=== PATIENT | female | born 1950 | race Caucasian/White ===

== ENCOUNTER 2017-10-19 08:20 | Outpatient (CLI) | payer MEDICARE | END 2017-10-19 08:21 | disposition home or self-care (01) | LOC: SLEEPLAB 08:20 | PROVIDERS: ATTEND Family Medicine | DX: G47.33 Obstructive sleep apnea (adult) (pediatric) (principal); R53.83 Other fatigue; I10 Essential (primary) hypertension; R06.83 Snoring | CPT/HCPCS: 95810 ==

== ENCOUNTER 2017-12-06 19:30 | Outpatient (CLI) | payer MEDICARE | END 2017-12-06 19:31 | disposition home or self-care (01) | LOC: SLEEPLAB 19:30 | PROVIDERS: ATTEND Family Medicine | DX: G47.33 Obstructive sleep apnea (adult) (pediatric) (principal); G47.52 REM sleep behavior disorder; I10 Essential (primary) hypertension | CPT/HCPCS: 95811 ==

== ENCOUNTER 2018-08-14 05:53 | Day surgery (SDC) | payer MEDICARE ==
[2018-08-13 11:00] VITALS: BMI 45.2
--- NOTE | 2018-08-14 10:12 | OP ---
DATE OF PROCEDURE: 08/14/2018 TITLE OF PROCEDURE: Esophagogastroduodenoscopy with Dolan dilation and biopsy. PREOPERATIVE DIAGNOSIS: Dysphagia for the last several years. POSTOPERATIVE DIAGNOSES: 1. Examination to second portion of duodenum. 2. A 4 cm hiatal hernia, estimated from 36 cm to 40 cm from the incisors. 3. Early Schatzki ring just proximal to the hiatal hernia at 36 cm, biopsied. 4. Status post dilation of the upper half of the esophagus with a 54-Turkish Dolan. 5. Normal stomach. 6. Normal duodenum. PROCEDURE IN DETAIL: Written informed consent was obtained. The patient was brought to the endoscop y suite. Total intravenous anesthesia was provided by Ms. Marly Mullen CRNA. The patient was placed in the left lateral decubitus position. A bite block was inserted into the mouth. A Pentax v ideo diagnostic gastroscope was introduced into the oral cavity and the esophagus was carefully intub ated. The gastroscope was advanced under direct visualization to the second portion of the duodenum. Endoscopic findings revealed a grossly normal esophageal motility. In the distal esophagus, a 4 cm hiatal hernia was identified from 36 cm to 40 cm from the incisors. A mild nonobstructing Schatzki ring was noted at 36 cm from the incisors. After the dilation of the upper esophagus, this area was biopsied for histology. The stomach was entered and carefully examined. This included a retroflexed view of the cardia and fundus. The stomach was unremarkable. The duodenum from the bulb to the sec ond portion demonstrated mild nonspecific patchy erythema with no ulceration. The endoscope was then removed and a 54-Turkish Dolan dilator was passed into the upper half of the esophagus with mild re sistance. The scope was reintroduced to evaluate the dilation site and obtain the esophageal biopsie s. A small amount of mucosal disruption and oozing was noted, but no active bleeding or overt tear. After the biopsies were obtained in the lower esophagus, the upper GI tract was decompressed and the endoscope was completely removed from the patient. She was repositioned for the colonoscopy. RECOMMENDATIONS: 1. Await biopsy results. 2. Ask the patient to call me in 1 week for biopsy results. 3. Low fat diet, stressing the importance of eating smaller and more frequent meals to avoid or to p revent overfilling of the stomach. 4. Gradual weight loss of 20-30 pounds will be recommended. 5. Initiate Nexium 40 mg daily. 6. Follow up in the GI office in 5-6 weeks.
--- NOTE | 2018-08-14 10:14 | OP ---
DATE OF PROCEDURE: 08/14/2018 TITLE OF PROCEDURE: Colonoscopy with biopsy. PREOPERATIVE DIAGNOSIS: Average risk colon cancer screening. POSTOPERATIVE DIAGNOSES: 1. Exam to cecum; good bowel preparation. 2. Mild sigmoid diverticulosis. 3. Mild congestion and erythema of the sigmoid colon from 25 cm distally, biopsied. 4. No polyps or vascular ectasias identified. 5. Small internal hemorrhoids. 6. Otherwise normal colonoscopy. PROCEDURE IN DETAIL: Written informed consent was obtained. Upon completion of the EGD, the patient was repositioned for the colonoscopy. Total intravenous anesthesia was provided by Ms. Marly daigle CRNA. A digital rectal exam was performed, which showed a small perianal tag. A Pentax video colonoscope was inserted through the anal canal and advanced under direct visualization to the cecum . Position in the cecum was verified by clear identification of the appendiceal orifice and the ileo cecal valve. The quality of the bowel preparation was good. Each colon segment was examined careful ly as the colonoscope was slowly withdrawn from the cecum. Vascular pattern and haustral folds appea red normal. Occasional diverticular orifices were noted in the sigmoid colon, none of which were ble eding or appeared infected. Starting at 25 cm distally in the sigmoid colon, the mucosa appeared mil dly congested and erythematous in a patchy distribution. Two superficial small ulcers were also iden tified, each measuring 2 mm in diameter. Biopsies were obtained for histology. No polyps were seen. A retroflexed view in the rectum demonstrated small internal hemorrhoids that appeared somewhat swo llen, but were not actively bleeding. The colon was decompressed as the colonoscope was completely w ithdrawn from the patient. She was transferred to the day stay surgery area for post-procedure monit oring. There were no immediate complications. RECOMMENDATIONS: 1. Await biopsy results. 2. Ask the patient to call me in 1 week for biopsy results. 3. Follow up in GI office in 5-6 weeks. 4. For colon cancer screening, I recommend repeating colonoscopy in 10 years or 08/2028.
[2018-08-14] MEDS ORDERED: Lidocaine 1% PF 5 ML VIAL ONE (13:30)
[2018-08-14] MEDS ORDERED: PROPOFOL 200 MG/20 ML VIAL ONE (13:30)
== END 2018-08-14 08:55 | disposition home or self-care (01) ==
LOC: SDC 05:53
PROVIDERS: ATTEND Internal Medicine Gastroenterology
PROC: 0DBN8ZX Excision of Sigmoid Colon, Via Natural or Artificial Opening Endoscopic, Diagnostic (ICD-10-PCS; principal; 2018-08-14)
PROC: 0DB38ZX Excision of Lower Esophagus, Via Natural or Artificial Opening Endoscopic, Diagnostic (ICD-10-PCS; 2018-08-14)
PROC: 0D718ZZ Dilation of Upper Esophagus, Via Natural or Artificial Opening Endoscopic (ICD-10-PCS; 2018-08-14)
DX: Z12.11 Encounter for screening for malignant neoplasm of colon (principal); K52.9 Noninfective gastroenteritis and colitis, unspecified; K57.30 Diverticulosis of large intestine without perforation or abscess without bleeding; K64.8 Other hemorrhoids; K22.2 Esophageal obstruction; K44.9 Diaphragmatic hernia without obstruction or gangrene; I10 Essential (primary) hypertension; E78.00 Pure hypercholesterolemia, unspecified; Z79.899 Other long term (current) drug therapy
CPT/HCPCS: 88305; 88312; 88313; J2001; J2704

== ENCOUNTER 2019-03-27 06:10 | Inpatient (IN) | payer MEDICARE ==
[2019-03-27] MEDS ORDERED: Atropine Sulfate 1 mg/10 ml Syringe ONE (06:30)
[2019-03-27] MEDS ORDERED: Fentanyl 100 MCG/2 ML VIAL ONE ×2 (06:38→07:31)
[2019-03-27 06:53] LABS: #Lymphocytes 1.1 thou/uL (1.20-3.40); #Monocytes 0.6 thou/uL (0.11-0.59); %Basophils 0.3 % (0.0-1.0); %Eosinophils 0.1 % (0.0-10.0); %Lymphocytes 9.5 % (21.0-51.0); %Monocytes 4.7 % (0.0-10.0); %Neutrophils 85.3 % (42.0-75.0); Hemoglobin 13.3 g/dL (12.0-16.0); Mean Corpuscular Hemoglobin 29.8 pg (27.0-31.0); Mean Corpuscular Volume 87.7 fL (78.0-98.0); Mean Platelet Volume 8.1 fL (7.4-10.4); Platelet Count 236 thou/uL (130-400); RBC Distribution Width 12.3 % (11.5-14.5); Red Blood Cell (RBC) Count 4.46 mill/uL (4.20-5.40); White Blood Cell (WBC) Count 11.7 thou/uL (4.8-10.8)
[2019-03-27 07:15] LABS: ALT (SGPT) 15 U/L (8-55); AST (SGOT) 17 U/L (5-34); Albumin 4.2 g/dL (3.4-4.8); Alkaline Phosphatase 90 U/L (40-150); Anion Gap 14 mmol/L (10-20); BUN (Urea Nitrogen) 14 mg/dL (9.8-20.1); Bilirubin, Total 0.6 mg/dL (0.2-1.2); CK (CPK) 86 U/L (29-168); Calc. Creatinine Clearance 0 mL/min (70-130); Carbon Dioxide 24 mmol/L (23-31); Chloride 106 mmol/L (98-107); Estimated GFR-MDRD 51; Globulin 2.7 g/dL (2.4-3.5); Glucose 147 mg/dL (80-115); Lipase 10 U/L (8-78); Protein, Total 6.9 g/dL (6.0-8.3); Sodium 140 mmol/L (136-145)
[2019-03-27] MEDS ORDERED: Nitroglycerin 2% Ointment 1 INCH/1 GM Packet ONE (08:35)
--- NOTE | 2019-03-27 08:39 | RAD ---
CHEST 1 VIEW: INDICATION: Right-sided chest pain. COMPARISON: None. FINDINGS: Lungs are clear. Heart size is accentuated by exam technique. No pleural effusion or pneumothorax i s evident. No acute osseous abnormality is noted. There is a pacer pad overlying the right chest wa ll. IMPRESSION: No definite acute cardiopulmonary abnormality. POS: BH
[2019-03-27] MEDS ORDERED: Lidocaine 2% Viscous Solution 10 ML, Aluminum & Magnesium Hydroxide 30 ML SSW SCH (09:15)
[2019-03-27] MEDS ORDERED: Morphine 4 MG/ML VIAL SLOW IVP SCH (09:15)
[2019-03-27] MEDS ORDERED: Morphine 4 MG/ML VIAL ONE (09:20)
[2019-03-27] MEDS ORDERED: Mag-Al 1200 mg/1200 mg/30 ML UDCUP ONE (09:21)
[2019-03-27] MEDS ORDERED: hydrALAZINE 20 MG/ML VIAL ONE (09:21)
[2019-03-27] MEDS ORDERED: Lidocaine Viscous Sol 2% 15 ml UD Cup ONE (09:21)
[2019-03-27] MEDS ORDERED: Ondansetron PF 4 MG/2 ML Vial ONE (09:25)
[2019-03-27 10:32] VITALS: BMI 44.8
[2019-03-27 11:10] LABS: Troponin I 0.011 ng/mL (< 0.028)
[2019-03-27] MEDS ORDERED: Bisacodyl 5 MG TAB PO PRN (11:22)
[2019-03-27] MEDS ORDERED: Acetaminophen 325 MG TAB PO PRN (11:22)
[2019-03-27] MEDS ORDERED: Acetaminophen 650 MG Suppository PR PRN (11:22)
--- NOTE | 2019-03-27 11:46 | HP ---
PRIMARY CARE PROVIDER: Tejas Arnold MD CHIEF COMPLAINT: Chest pain. HISTORY OF PRESENT ILLNESS: Ms. Coyle is a pleasant 68-year-old lady, who was seen at [facility] on March 27, 2019. She reports that around 10:00 p.m. yesterday, she started having chest pain. It was right-sided and retrosternal, sharp, 10/10, nonradiating, accompanied by shortness of breath, nausea, and lightheadedness. She reports vomiting once. She denies any cough or fever. She denies any abdominal pain. REVIEW OF SYSTEMS: All other systems were reviewed and found to be negative. PAST MEDICAL HISTORY: Hypertension and dyslipidemia. 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 SOCIAL HISTORY: No history of tobacco use, alcohol use, or recreational drug use. ALLERGIES: NO KNOWN DRUG ALLERGIES. CURRENT MEDICATIONS: 1. Atorvastatin 10 mg daily. 2. Hydrochlorothiazide 25 mg daily. 3. Losartan 50 mg daily. 4. Vitamin D3 5000 units daily. PHYSICAL EXAMINATION: GENERAL: On examination, Ms. Coyle is awake and alert, not in acute distress. VITAL SIGNS: Blood pressure is 194/75, pulse 75, respiratory rate 22, and oxygen saturation 99% on room air. She is afebrile. When she presented to the emergency room, she had a blood pressure of 222/93 and pulse of 42. She is morbidly obese, with a BMI of 44.8. EYES: No scleral icterus, no conjunctival pallor. ENT: Moist mucosal membranes. No oropharyngeal erythema or exudates. NECK: Supple, nontender, trachea is midline. RESPIRATORY: Accessory muscles of breathing are not active. Chest wall movements are symmetric bilaterally. Lungs are clear to auscultation without wheeze, rhonchi, or crepitations. CARDIOVASCULAR: S1 and S2 are heard, regular. Peripheral pulses palpable. ABDOMEN: Soft, mild right quadrant tenderness, bowel sounds heard. No guarding or rigidity. NEUROLOGIC: Cranial nerves 2 through 12 intact, deep tendon reflexes 2+. MUSCULOSKELETAL: Power is 5/5 in all 4 extremities. SKIN: No rashes or subcutaneous nodules. LYMPHATIC: No cervical lymphadenopathy. PSYCHIATRIC: Normal mood, normal affect, the patient is oriented to person, place, and time. LABORATORY DATA: Ms. Coyle's labs and investigations were reviewed. I reviewed her electrocardiogram, which shows marked sinus bradycardia with a ventricular rate of 45 beats per minute, no ST changes to suggest an acute coronary syndrome. I also reviewed her chest x-ray, which does not show any pulmonary infiltrates. She has leukocytosis with 11,700 white cells, of which 85.3% are neutrophils. Hemoglobin and platelet count are normal. Comprehensive metabolic profile is unremarkable. Lipase is normal. Troponin I is negative x2. ASSESSMENT AND PLAN: Ms. Coyle is a pleasant 68-year-old lady, who was seen at [facility] on March 27, 2019. Her problem list includes: 1. Chest pain: Ms. Coyle is presenting with chest pain, etiology unclear at this time. She will be admitted to the hospital for telemetry monitoring. Troponin' s have been negative so far. Cardiology Service also being consulted for opinion and help with management. 2. Bradycardia: She was bradycardic on presentation. This resolved after she got a dose of atropine. We will continue to monitor on telemetry. 3. Hypertension: She initially presented with hypertensive urgency, this has improved since then. We will continue to monitor vital signs and titrate antihypertensives as needed. 4. Dyslipidemia: We will continue statin. Many thanks for allowing me to participate in your patient's care. Please feel free to contact me with any questions or concerns. LEVEL OF RISK: High. LEVEL OF COMPLEXITY: High. Job ID: [id number] MTDD
[2019-03-27 13:52] LABS: Troponin I 0.018 ng/mL (< 0.028)
[2019-03-27] MEDS: Morphine 2 MG/ML SYRINGE SLOW IVP PRN ×3 (14:52→23:57)
--- NOTE | 2019-03-27 18:30 | CON ---
DATE OF CONSULTATION: 03/27/2019 REASON FOR CONSULTATION: Chest pain. HISTORY OF PRESENT ILLNESS: Ms. Coyle is a very pleasant 68-year-old white female, who comes to the hospital for right-sided chest pain and hypertension. In the ER, she was found to have a blood pressure in 200/100 and her heart rate was about 43 to 48, so she was given a dose of atropine and given morphine for her pain and nitroglycerin patch for the blood pressure, and her blood pressure improved. Her symptoms got much better after the morphine. She was admitted then for rule out. She has had 3 negative troponins, but her right-sided chest pain continues. It is worse when she moves her right arm when she lays on the right side. I asked if she had found a spot where the pain was much worse, she started feeling around her chest and she found the exact spot around her right breast where it was exquisitely tender to palpation. She also states that it pains when she takes a deep breath. The only relief she has gotten is when she received the IV morphine. She has never had problems with her heart in the past. She does have high blood pressure. She has been taking her medications. She tells me that yesterday before this started, she cleaned her house. She actually has a vacuum janitorial cleaner that is able to clean with soap the carpet and she has four large dogs that have been outside in the mud as there has been raining so much, and they brought in the mud making her home really dirty, so she decided to clean it, and she spent about 3 to 4 hours cleaning with the right arm moving it back and forth. She would only hold the cord with her left arm. She states that she is much more comfortable with the right arm that she barely use her left arm for the vacuum janitorial cleaner. This is not something she does on a regular basis. PAST MEDICAL HISTORY: 1. Hypertension. 2. Hyperlipidemia. PAST SURGICAL HISTORY: 1. Cancer removal from the nose. 2. Right ankle surgery. 3. Tubal ligation. 4. Bladder suspension. SOCIAL HISTORY: No alcohol, tobacco, or drugs. smokes but not in the house or with her. ALLERGIES: NO KNOWN DRUG ALLERGIES. OUTPATIENT MEDICATIONS: 1. Atorvastatin 10 mg a day. 2. Hydrochlorothiazide 25 mg a day. 3. Losartan 50 mg a day. 4. Vitamin D3. REVIEW OF SYSTEMS: A 12-point review of systems was done and was all negative unless stated in history of present illness. PHYSICAL EXAMINATION: VITAL SIGNS: Temperature 99.1, highest has been 99.8, pulse 79, respiratory rate 16, saturation 92% on 2 L nasal cannula, blood pressure 136/63. It has been as high as 174/72 and on admission in the ER, it was 222/93 with pain was 8/10 and a heart rate of 42. GENERAL: Awake, alert, and oriented x3, in mild distress, mostly when she moves. HEENT: Normocephalic and atraumatic. NECK: Supple. LUNGS: Clear. CARDIOVASCULAR: S1 and S2. No S3 or S4. No murmurs. ABDOMEN: Soft. Positive bowel sounds. EXTREMITIES: Trace edema. SKIN: Warm and dry. She has very reproducible pain when palpating the right lower ribcage around the 7th rib. LABORATORY DATA: Laboratory work was reviewed. CBC is unremarkable except for white count 11, hemoglobin of 13, hematocrit 39, platelet count 236. Chemistries were normal except for glucose of 147. Troponin was negative x3. DIAGNOSTIC DATA: Chest x-ray showed no acute cardiopulmonary issues. Looking close for the area of pain. There are no obvious fractures on the right-sided ribcage. ASSESSMENT AND PLAN: 1. Right-sided chest pain, most likely musculoskeletal. 2. Bradycardia, asymptomatic. She has not had recurrence since yesterday. 3. Hypertensive emergency, likely related to her chest pain. Her blood pressure is much better controlled now with pain control. We will restart her home medications for now. PLAN: 1. Restart home medications. 2. Continue blood pressure control. 3. Continue pain control. 4. Musculoskeletal chest pain most likely. 5. We will get an echocardiogram. 6. Further recommendations per results of echocardiogram. From the cardiac perspective if the echocardiogram is normal, she may be discharged home at any point. Job ID: [id number]
[2019-03-28] MEDS: Morphine 2 MG/ML SYRINGE SLOW IVP PRN ×5 (04:02→21:18)
[2019-03-28 06:32] LABS: Anion Gap 12 mmol/L (10-20); BUN (Urea Nitrogen) 14 mg/dL (9.8-20.1); Calc. Creatinine Clearance 98 mL/min (70-130); Calcium 9.3 mg/dL (7.8-10.44); Carbon Dioxide 26 mmol/L (23-31); Chloride 101 mmol/L (98-107); Estimated GFR-MDRD 51; Glucose 113 mg/dL (80-115); Potassium 3.8 mmol/L (3.5-5.1); Sodium 135 mmol/L (136-145)
[2019-03-28 06:53] LABS: Band 28 % (5-11); Hemoglobin 12.6 g/dL (12.0-16.0); Lymphocytes 2 % (21-51); MDiff Complete? YES; Mean Corpuscular HGB CONC 33.6 g/dL (32.0-36.0); Mean Corpuscular Hemoglobin 29.9 pg (27.0-31.0); Mean Platelet Volume 7.8 fL (7.4-10.4); Monocytes 3 % (0-10); Neutrophil 67 % (42-75); Platelet Count 189 thou/uL (130-400); Platelet Morphology Comment Appears Adequate; RBC Distribution Width 12.6 % (11.5-14.5); RBC Morphology Normal; Red Blood Cell (RBC) Count 4.21 mill/uL (4.20-5.40); White Blood Cell (WBC) Count 27.6 thou/uL (4.8-10.8)
[2019-03-28] MEDS: Hydrochlorothiazide 25 MG TAB PO SCH (08:54)
[2019-03-28] MEDS: Losartan 25 MG TAB PO SCH (08:56)
--- NOTE | 2019-03-28 11:37 | EKG ---
Test Reason : Blood Pressure : / mmHG Vent. Rate : 045 BPM Atrial Rate : 045 BPM P-R Int : 146 ms QRS Dur : 088 ms QT Int : 510 ms P-R-T Axes : 060 005 025 degrees QTc Int : 441 ms Marked sinus bradycardia Abnormal ECG Confirmed by DR. Mindi WALSH ([id number]) on 03/28/2019 11:36:45 AM Referred By: Confirmed By:DR. Mindi WALSH
[2019-03-28 15:22] LABS: Mean Corpuscular HGB CONC 32.4 g/dL (32.0-36.0); Mean Corpuscular Hemoglobin 29.2 pg (27.0-31.0); Mean Corpuscular Volume 90.3 fL (78.0-98.0); Platelet Count 181 thou/uL (130-400); RBC Distribution Width 12.6 % (11.5-14.5); Red Blood Cell (RBC) Count 4.11 mill/uL (4.20-5.40); White Blood Cell (WBC) Count 24.8 thou/uL (4.8-10.8)
[2019-03-28 15:45] LABS: Band 30 % (5-11); Lymphocytes 4 % (21-51); MDiff Complete? YES; Metamyelocyte 1 % (0-0); Monocytes 5 % (0-10); Neutrophil 60 % (42-75); Platelet Morphology Comment Appears Adequate; Polychromasia SLIGHT = 2-3 cells (100X) (0-2/hpf)
--- NOTE | 2019-03-28 16:27 | PDOC.PN ---
- Subjective Encounter Start Date: 03/28/19 Encounter Start Time: 16:25 Pt seen for followup re: sepsis. Says pain is better. No nausea or vomiting. No urinary symptoms. - Objective Resuscitation Status - Order Detail: 03/27/19 11:22 Resuscitation Status Routine Resuscitation Status: FULL: Full Resuscitation Discussed with: patient and spouse MAR Reviewed: Yes Vital Signs & Weight: Vital Signs (12 hours) Temp Pulse Resp BP Pulse Ox 03/28/19 16:00 100.1 F H 73 16 125/58 L 94 L 03/28/19 12:08 98.5 F 75 16 140/65 94 L 03/28/19 08:56 98.7 F 80 18 117/56 L 95 03/28/19 07:36 93 L Weight Weight 269 lb 3.197 oz I&O: 03/27/19 03/28/19 03/29/19 06:59 06:59 06:59 Intake Total 250 Balance 250 Result Diagrams: 03/28/19 15:13 03/28/19 05:48 EKG Reviewed by me: Yes (Tele: NSR) Phys Exam - Physical Examination Morbid obesity HEENT: moist MMs, sclera anicteric, oral pharynx no lesions, 2+ tonsils Neck: no nodes, no JVD, supple, full ROM Respiratory: clear to auscultation bilateral Cardiovascular: RRR, no rub S1, S2 Gastrointestinal: soft, no distention, positive bowel sounds Mild RUQ tenderness Neurological: moves all 4 limbs Psychiatric: normal affect, A&O x 3 Dx/Plan (1) Sepsis Code(s): A41.9 - SEPSIS, UNSPECIFIED ORGANISM Status: Acute Comment: Pt is febrile, has bandemia. Has RUQ/right lower chest tenderness. Initiate empiric antibiotics and workup including urinalysis, blood cultures, abdo US. (2) HTN (hypertension) Code(s): I10 - ESSENTIAL (PRIMARY) HYPERTENSION Status: Chronic Comment: continue hydrochlorothiazide and losartan (3) Dyslipidemia Code(s): E78.5 - HYPERLIPIDEMIA, UNSPECIFIED Status: Chronic Comment: continue atorvastatin (4) Hypertensive urgency Code(s): I16.0 - HYPERTENSIVE URGENCY Status: Resolved - Plan * . Review of Systems - Review of Systems Constitutional: fever. negative: chills, sweats, weakness, malaise Respiratory: negative: Cough, Shortness of Breath, SOB with Excertion, Pleuritic Pain, Wheezing Cardiovascular: chest pain. negative: orthopnea, paroxysmal nocturnal dyspnea, edema, light headedness Gastrointestinal: Abdominal Pain. negative: Nausea, Vomiting, Diarrhea, Constipation, Melena, Hematochezia, Other Genitourinary: negative: Dysuria, Frequency, Incontinence, Hematuria, Retention Musculoskeletal: negative: Neck Pain, Shoulder Pain, Arm Pain, Back Pain, Hand Pain, Leg Pain, Foot Pain - Medications/Allergies Allergies/Adverse Reactions: Allergies Allergy/AdvReac Type Severity Reaction Status Date / Time No Known Allergies Allergy Verified 03/27/19 10:36 Medications: Current Medications Acetaminophen (Tylenol) 650 mg PO Q4H PRN PRN Reason: Headache/Fever/Mild Pain (1-3) Acetaminophen (Tylenol) 650 mg IN Q4H PRN PRN Reason: Headache/Fever/Mild Pain (1-3) Bisacodyl (Dulcolax) 10 mg PO DAILYPRN PRN PRN Reason: Constipation Hydrochlorothiazide (Hydrochlorothiazide) 12.5 mg PO DAILY [facility] Last Admin: 03/28/19 08:54 Dose: 12.5 mg Vancomycin HCl 1 gm/ Device 200 mls @ 200 mls/hr IVPB 0600,1800 [facility] Piperacillin Sod/Tazobactam (Sod 4.5 gm/ Sodium Chloride) 100 mls @ 200 mls/hr IVPB 0100,0900,1700 [facility] Vancomycin HCl 2 gm/ Sodium (Chloride) 500 mls @ 250 mls/hr IVPB 1800 [facility] Stop: 03/28/19 20:00 Losartan Potassium (Cozaar) 50 mg PO DAILY [facility] Last Admin: 03/28/19 08:56 Dose: 50 mg Miscellaneous Medication (Pharmacy To Dose) 1 each IVPB PRN PRN PRN Reason: Pharmacy to dose Morphine Sulfate (Morphine) 2 mg SLOW IVP Q4H PRN PRN Reason: Pain Last Admin: 03/28/19 12:50 Dose: 2 mg
--- NOTE | 2019-03-28 16:57 | PDOC.CTH ---
Cardiology Progress Note - Subjective Sore right rib. Feels like she cannot take a deep breath. - Objective Vital Signs Temp Pulse Resp BP Pulse Ox 03/28/19 16:00 100.1 F H 73 16 125/58 L 94 L 03/28/19 12:08 98.5 F 75 16 140/65 94 L 03/28/19 08:56 98.7 F 80 18 117/56 L 95 03/28/19 07:36 93 L Weight 269 lb 3.197 oz 03/27/19 03/28/19 03/29/19 06:59 06:59 06:59 Intake Total 250 Balance 250 - Physical Examination General/Neuro: alert & oriented x3, NAD Neck: no JVD present Lungs: CTA, unlabored respirations Heart: RRR Abdomen: NT/ND Extremities: + edema B (trace) - Telemetry Telemetry Rhythm: NSR - Labs Result Diagrams: 03/28/19 15:13 03/28/19 05:48 Troponin/CKMB Troponin I 0.018 ng/mL (< 0.028) 03/27/19 13:19 - Assessment/Plan 1. Chest pain, MSK. 2. Hypoxia 3. HTN, well controlled. 4. Bradycardia, resolved. PLAN: - Non cardiac chest pain, - Very sore right lower rib. - May explain her hypoxia as she is not able to take a full breath and with her weight this may be making her hypoxic. - I cannot explain her elevated white count with this unless she has developed atelectasy from this. Would repeat CXR and keep overnight. - No new recs from cardiac perspective. - Will sign out. Please call with any questions.
[2019-03-28 17:06] LABS: ALT (SGPT) 28 U/L (8-55); AST (SGOT) 27 U/L (5-34); Albumin 3.5 g/dL (3.4-4.8); Alkaline Phosphatase 89 U/L (40-150); Bilirubin, Direct 0.9 mg/dL (0.1-0.3); Bilirubin, Total 1.9 mg/dL (0.2-1.2); Protein, Total 6.4 g/dL (6.0-8.3)
[2019-03-28] MEDS: Piperacillin/Tazobactam 4.5 GM in Sodium Chloride 0.9% 100 ML IVPB SCH (17:11)
[2019-03-28 18:35] LABS: Bilirubin Negative (Negative); Blood, Urine Trace (Negative); Clarity CLEAR (Clear); Glucose, Urine (Dipstick) Negative (Negative); Leukocyte Small (Negative); Nitrite Negative (Negative); Protein, Urine (Dipstick) 30 mg/dL (Neg-Trace); Specific Gravity, Urine 1.023 (1.002-1.036); pH, Urine 5.5 (5.0-9.0)
[2019-03-28 18:37] LABS: Hyaline Casts/LPF 4-6 HYALINE CAST LPF (0-3 Hyaline); Pathc Cast-AUWi Flag 1.49 (0-2.49)
--- NOTE | 2019-03-28 18:40 | RAD ---
EXAM: Two views chest PROVIDED CLINICAL HISTORY: Follow-up evaluation. Right-sided chest pain one day ago. Evaluate for infection. COMPARISON: 03/27/2019 FINDINGS: Cardiac silhouette and pulmonary vasculature are within normal limits. There are linear densities se en in the left hilar region, left mid lung zone, and at the left lung base likely attributable to atelectasis. There is mild elevation of the right hemidiaphragm with mild volume loss at the right brandin ng base. There is questionable small hiatal hernia at the medial left lung base. No pleural effusion is seen. Vascular calcifications are seen in the thoracic aorta. Degenerative changes again noted in the spine. IMPRESSION: Scattered linear densities within the left perihilar region and at the left lung base probably attrib utable to atelectasis. However, if there are clinical concerns for pneumonitis, follow-up chest x-ray is recommended..
[2019-03-28 18:47] LABS: RBC/HPF 0-3 HPF (0-3)
[2019-03-28 18:48] LABS: Bacteria/HPF 1+ HPF (None Seen); Urine Culture Reflex No No
[2019-03-28 21:10] LABS: Lactic Acid 1.2 mmol/L (0.5-2.2)
[2019-03-29] MEDS: Piperacillin/Tazobactam 4.5 GM in Sodium Chloride 0.9% 100 ML IVPB SCH ×3 (00:31→16:30)
[2019-03-29] MEDS: Morphine 2 MG/ML SYRINGE SLOW IVP PRN ×2 (04:08→09:00)
[2019-03-29] MEDS ORDERED: Vancomycin HCl 1 GM in Premix Bag 1 BAG IVPB SCH (06:00)
--- NOTE | 2019-03-29 07:48 | ULT ---
ULTRASOUND ABDOMEN COMPLETE HISTORY: Right upper quadrant pain. TECHNIQUE: Parry-scale ultrasound evaluation of the liver, gallbladder, spleen, pancreas, common bile duct, kidne ys, abdominal aorta, and inferior vena cava (IVC). FINDINGS: There is mild increased echogenicity of the liver without a focal lesion evident. Cholelithiasis is present. There is thickening of the gallbladder wall at 7 mm, and Huertas's sign is reported as posit debbie by the drilling machine operator. Dilatation of the common duct at 9 mm noted. There is a small focus of incr eased echogenicity of the right kidney which may relate to a calcification. The spleen and the left kidney are unremarkable. The pancreas is obscured from view by bowel content limiting assessment. T here is also obscuration of the aorta for comment. The visualized IVC is grossly unremarkable. IMPRESSION: 1. Cholelithiasis and cholecystitis. Recommend surgical consultation. 2. Dilatation of the common duct. Correlate with biliary laboratory values. 3. Additional findings as detailed above. POS: BIANCA
[2019-03-29] MEDS: Hydrochlorothiazide 25 MG TAB PO SCH (09:08)
[2019-03-29] MEDS: Losartan 25 MG TAB PO SCH (09:08)
--- NOTE | 2019-03-29 11:04 | CON ---
DATE OF CONSULTATION: 03/29/2019 CHIEF COMPLAINT: Abdominal pain. HISTORY OF PRESENT ILLNESS: This is a 68-year-old female admitted last night to the Hospitalist Service. She had Cardiology see her as well, complaining of right-sided and retrosternal sharp 10/10 pain, does not radiate. Associated with the pain when she breaths, shortness of breath, nausea and vomiting, never had this pain before. No prior history of gallstones, jaundice, or pancreatitis. Cardiac workup is negative. Ultrasound shows thickened gallbladder wall and cholecystitis. She has elevation of her liver function tests. No family history of GI malignancy or anesthetic-related complication. PAST MEDICAL HISTORY: Hypertension, dyslipidemia. REVIEW OF SYSTEMS: Ten system review of systems is otherwise negative unless described above. PAST SURGICAL HISTORY: Negative for abdominal surgery. SOCIAL HISTORY: No smoking, alcohol, or other drugs. ALLERGIES: NO KNOWN DRUG ALLERGIES. MEDICATIONS: At home; 1. Atorvastatin. 2. Hydrochlorothiazide. 3. Losartan. 4. Vitamin D3. PHYSICAL EXAMINATION: VITAL SIGNS: Blood pressure is 133/62, pulse 79, respirations 20, and she is afebrile. GENERAL: Alert, no acute distress, although she splints when she takes a big breath due to her pain on the right side. HEENT: Sclerae are anicteric. Oropharynx clear. NECK: No lymphadenopathy. CHEST: Clear. HEART: Regular rate. ABDOMEN: Soft. Tender right upper quadrant with localized guarding without rebound. No abdominal hernia. EXTREMITIES: No ischemia or edema to extremities. LABORATORY DATA: White blood cell count is 24, hemoglobin 12, and platelet count is 181. Sodium is 135, potassium 3.8, creatinine is 1.07, and bilirubin 1.9. AST, ALT, alkaline phosphatase, and lipase all normal. IMAGING DATA: Ultrasound shows thickened gallbladder wall, dilation of the common bile duct, gallstones. ASSESSMENT: 1. Acute cholecystitis, though there are no liver tests. 2. Hypertension. 3. Dyslipidemia. PLAN: Laparoscopic cholecystectomy with intraoperative cholangiogram. Risks, benefits, and alternatives were discussed, she gives consent and we will do this today. Job ID: [id number]
[2019-03-29] MEDS ORDERED: Glycopyrrolate 0.2 MG/ML 5 ML SYRINGE ONE (12:04)
[2019-03-29] MEDS ORDERED: Ketorolac Tromethamine 30 MG/ML VIAL ONE ×2 (12:04→12:35)
[2019-03-29] MEDS ORDERED: Ondansetron PF 4 MG/2 ML Vial ONE (12:04)
[2019-03-29] MEDS ORDERED: Rocuronium Bromide 10 MG/ML (10ML VIAL) ONE (12:04)
[2019-03-29] MEDS ORDERED: PHENYLEPHRINE-NS 100 MCG/ML 10 ML SYRINGE ONE (12:04)
[2019-03-29] MEDS ORDERED: PROPOFOL 200 MG/20 ML VIAL ONE (12:04)
[2019-03-29] MEDS ORDERED: Succinylcholine Chloride 20 MG/ML 10 ml SYRINGE FS ONE (12:04)
[2019-03-29] MEDS ORDERED: Lidocaine 2% PF 5 ML VIAL ONE (12:04)
[2019-03-29] MEDS ORDERED: Dexamethasone 20 MG/5 ML VIAL ONE (12:04)
[2019-03-29] MEDS ORDERED: Bupivacaine/Epinephrine 0.25% 30 ML VIAL ONE (12:19)
[2019-03-29] MEDS ORDERED: Iothalamate Meglumine 60% 50 ML VIAL FS ONE (12:19)
[2019-03-29] MEDS ORDERED: Fentanyl 100 MCG/2 ML VIAL ONE ×2 (12:20)
[2019-03-29] MEDS ORDERED: Ondansetron HCl/PF 4 MG/2 ML Vial IVP PRN (13:26)
[2019-03-29] MEDS ORDERED: Promethazine HCl 25 MG/ML VIAL IM PRN ×2 (13:26→15:37)
[2019-03-29] MEDS ORDERED: Promethazine HCl 25 MG/ML VIAL SLOW IVP PRN (13:26)
--- NOTE | 2019-03-29 13:49 | RAD ---
EXAM: Operative cholangiogram INDICATIONS: Intraoperative imaging during cholecystectomy procedure. Operative cholangiogram. COMPARISON: None. FINDINGS: 2 images presented. Common duct is opacified and appears unremarkable. No filling defect id entified. IMPRESSION: Unremarkable cholangiogram
[2019-03-29] MEDS ORDERED: SUGAMMADEX SODIUM 200 MG/2 ML VIAL ONE (13:58)
[2019-03-29] MEDS ORDERED: Calcium Carbonate 500 MG ChewTAB PO PRN (15:37)
[2019-03-29] MEDS ORDERED: Mag-Al 1200 mg/1200 mg/30 ML UDCUP PO PRN (15:37)
[2019-03-29] MEDS ORDERED: hydrALAZINE 20 MG/ML VIAL SLOW IVP PRN (15:37)
[2019-03-29] MEDS ORDERED: Ondansetron PF 4 MG/2 ML Vial IVP PRN (15:37)
[2019-03-29] MEDS ORDERED: Dextrose 5% in Water 1,000 ML IV PRN (15:37)
[2019-03-29] MEDS ORDERED: traMADol HCl 50 MG TAB PO PRN ×2 (15:37)
[2019-03-29] MEDS ORDERED: Dextrose 50% Abboject 50 ML SYRINGE SLOW IVP PRN (15:37)
[2019-03-29] MEDS ORDERED: Morphine 4 MG/ML VIAL SLOW IVP PRN (15:37)
[2019-03-29] MEDS ORDERED: Morphine 2 MG/ML SYRINGE SLOW IVP PRN (15:37)
--- NOTE | 2019-03-29 15:46 | PDOC.PN ---
- Subjective Encounter Start Date: 03/29/19 Encounter Start Time: 07:00 Pt seen for followup re: acute cholecystitis. Reports RUQ pain. - Objective Resuscitation Status - Order Detail: 03/27/19 11:22 Resuscitation Status Routine Resuscitation Status: FULL: Full Resuscitation Discussed with: patient and spouse Vital Signs & Weight: Vital Signs (12 hours) Temp Pulse Resp BP Pulse Ox 03/29/19 15:25 98.3 F 74 22 H 113/67 100 03/29/19 11:44 101.3 F H 79 22 H 125/64 92 L 03/29/19 08:29 98.9 F 79 20 133/62 92 L Weight Weight 272 lb I&O: 03/28/19 03/29/19 03/30/19 06:59 06:59 06:59 Intake Total 250 700 Output Total 1500 Balance 250 -800 Result Diagrams: 03/28/19 15:13 03/28/19 05:48 Phys Exam - Physical Examination Morbid obesity HEENT: moist MMs icterus Neck: supple Respiratory: clear to auscultation bilateral Cardiovascular: RRR Gastrointestinal: soft Neurological: moves all 4 limbs Psychiatric: normal affect Dx/Plan (1) Acute cholecystitis Code(s): K81.0 - ACUTE CHOLECYSTITIS Status: Acute Comment: Pt on empiric antibiotics, awaiting cholecystectomy (2) Sepsis Code(s): A41.9 - SEPSIS, UNSPECIFIED ORGANISM Status: Acute Comment: secondary to acute cholecystitis, continue antibiotics, await cholecystectomy. (3) HTN (hypertension) Code(s): I10 - ESSENTIAL (PRIMARY) HYPERTENSION Status: Chronic Comment: controlled, continue hydrochlorothiazide and losartan (4) Dyslipidemia Code(s): E78.5 - HYPERLIPIDEMIA, UNSPECIFIED Status: Chronic Comment: on atorvastatin (5) Hypertensive urgency Code(s): I16.0 - HYPERTENSIVE URGENCY Status: Resolved - Plan * . Review of Systems - Review of Systems Cardiovascular: negative: chest pain, palpitations, orthopnea, paroxysmal nocturnal dyspnea, edema, light headedness Gastrointestinal: Nausea, Abdominal Pain. negative: Vomiting, Diarrhea, Constipation, Melena, Hematochezia - Medications/Allergies Allergies/Adverse Reactions: Allergies Allergy/AdvReac Type Severity Reaction Status Date / Time No Known Allergies Allergy Verified 03/27/19 10:36 Medications: Current Medications Hydrocodone Bitart/Acetaminophen ([place] 10/325) 1 tab PO Q6H PRN PRN Reason: Moderate Pain (4-6) Al Hydroxide/Mg Hydroxide (Maalox) 15 ml PO Q6H PRN PRN Reason: Dyspepsia Albuterol/Ipratropium (Duoneb) 3 ml NEB Q4H PRN PRN Reason: Wheezing Calcium Carbonate (Tums) 1,000 mg PO Q4H PRN PRN Reason: Dyspepsia Dextrose/Water (Dextrose 50%) 25 gm SLOW IVP PRN PRN PRN Reason: Hypoglycemia Famotidine (Pepcid) 20 mg PO Q12HR FELIX Famotidine (Pepcid) 20 mg SLOW IVP Q12HR [facility] Glucagon (Glucagon) 1 mg IM PRN PRN PRN Reason: Hypoglycemia Hydralazine HCl (Apresoline) 10 mg SLOW IVP Q4H PRN PRN Reason: SBP > 170 or DBP > 100 Hydrochlorothiazide (Hydrochlorothiazide) 12.5 mg PO DAILY [facility] Last Admin: 03/29/19 09:08 Dose: Not Given Piperacillin Sod/Tazobactam (Sod 4.5 gm/ Sodium Chloride) 100 mls @ 200 mls/hr IVPB 0100,0900,1700 [facility] Last Admin: 03/29/19 09:00 Dose: 100 mls Dextrose/Water (D5w) 1,000 mls @ 0 mls/hr IV .Q0M PRN PRN Reason: Hypoglycemia Sodium Chloride (Normal Saline 0.9%) 1,000 mls @ 100 mls/hr IV .Q10H [facility] Losartan Potassium (Cozaar) 50 mg PO DAILY [facility] Last Admin: 03/29/19 09:08 Dose: Not Given Morphine Sulfate (Morphine) 2 mg SLOW IVP Q2H PRN PRN Reason: Mild Pain (1-3) Morphine Sulfate (Morphine) 4 mg SLOW IVP Q2H PRN PRN Reason: Moderate Pain (4-6) Ondansetron HCl (Zofran) 4 mg IVP Q6H PRN PRN Reason: Nausea/Vomiting Promethazine HCl (Phenergan) 12.5 mg IM Q4H PRN PRN Reason: Nausea/Vomiting Tramadol HCl (Ultram) 50 mg PO Q6H PRN PRN Reason: Mild Pain (1-3) Tramadol HCl (Ultram) 100 mg PO Q6H PRN PRN Reason: Moderate Pain (4-6)
[2019-03-29] MEDS: Sodium Chloride 0.9% 1,000 ML IV SCH (16:30)
[2019-03-29] MEDS: HYDROcodone/Acetaminophen 10/325 mg Tablet PO PRN ×2 (16:31→21:45)
--- NOTE | 2019-03-29 19:51 | OP ---
DATE OF PROCEDURE: 03/29/2019 PREOPERATIVE DIAGNOSIS: Acute gangrenous cholecystitis. POSTOPERATIVE DIAGNOSIS: Acute gangrenous cholecystitis. PROCEDURE PERFORMED: Laparoscopic cholecystectomy with intraoperative cholangiogram, placement of temporary upper abdominal drain. ANESTHESIA: General. ESTIMATED BLOOD LOSS: Minimal. COMPLICATIONS: None. FINDINGS: Gangrenous cholecystitis, but cholangiogram normal. TECHNIQUE: The patient was taken to the operating room and laid supine on the operating room table. After general anesthetic was obtained, the abdomen was prepped and draped in a sterile fashion. A curved incision was made below the umbilicus. Cautery was dissected down to and scored the fascia. Abdominal cavity was entered bluntly using a Magaly clamp. Holding stitch of PDS . Latanya trocar was placed. High-flow pneumoperitoneum was obtained. Upper midline 5-mm port, two right upper quadrant 5-mm ports were placed under direct visualization. Gallbladder was gangrenous. It was decompressed with the needle decompression. It was able to be then grasped. Because of the patient's body habitus, the colon was up in front of the gallbladder had to be retracted down with additional 5e port and the snake liver retractor. The peritoneum was opened at the bottom of the gallbladder exposing the cystic duct. This area of the cystic duct just completely in 2 during blunt dissection leaving only a stump of the cystic duct down inferiorly. Cholangiocatheter was put in through here and a cholangiogram was performed, which showed a long cystic duct. No injury to the common bile duct. Good contrast flow into the duodenum, right and left hepatic duct system without obstruction. Three clips were placed to ligate this proximal stump. Cystic artery was taken using two clips proximally, one clip distally and cut using laparoscopic scissors. The gallbladder tract was removed was excised from the gallbladder fossa using cautery. Meticulous hemostasis obtained in the liver bed. The right upper quadrant was irrigated using sterile solution. A 19 round drain brought out through a right upper quadrant incision and left in the gallbladder bed sewn in place using 2-0 silk. All port sites were infiltrated using local anesthetic. All ports were removed under camera visualization. Pneumoperitoneum was let down. PDS was used to close the fascial defect. All incisions were closed using 4-0 Monocryl and Dermabond. The patient recovered in stable condition. All sponge counts, needle counts, lap counts were correct. Job ID: [id number]
[2019-03-29] MEDS: Famotidine/PF 20 mg/2ml Vial SLOW IVP SCH (21:23)
[2019-03-29] MEDS: Famotidine 20 MG TAB PO SCH (21:54)
[2019-03-30] MEDS ORDERED: Sodium Chloride 0.9% 1,000 ML IV SCH (01:30)
--- NOTE | 2019-03-30 01:47 | PDOC.EVN ---
Event Note - Event Note Event Note: RN called - BP low. STAT labs ordered. Receiving IVF bolus. Will monitor.
[2019-03-30 02:09] LABS: #Lymphocytes 0.6 thou/uL (1.20-3.40); #Monocytes 0.8 thou/uL (0.11-0.59); #Neutrophils 14.5 thou/uL (1.40-6.50); %Eosinophils 0.1 % (0.0-10.0); %Lymphocytes 3.9 % (21.0-51.0); %Monocytes 4.9 % (0.0-10.0); %Neutrophils 91.1 % (42.0-75.0); Hemoglobin 10.5 g/dL (12.0-16.0); Mean Corpuscular HGB CONC 32.2 g/dL (32.0-36.0); Mean Corpuscular Hemoglobin 29.3 pg (27.0-31.0); Mean Corpuscular Volume 91.1 fL (78.0-98.0); Mean Platelet Volume 8.5 fL (7.4-10.4); Platelet Count 147 thou/uL (130-400); RBC Distribution Width 12.5 % (11.5-14.5); Red Blood Cell (RBC) Count 3.57 mill/uL (4.20-5.40); White Blood Cell (WBC) Count 15.9 thou/uL (4.8-10.8)
[2019-03-30 02:30] LABS: Lactic Acid 1.4 mmol/L (0.5-2.2)
[2019-03-30 02:34] LABS: ALT (SGPT) 38 U/L (8-55); AST (SGOT) 34 U/L (5-34); Albumin 2.8 g/dL (3.4-4.8); Alkaline Phosphatase 84 U/L (40-150); Anion Gap 11 mmol/L (10-20); BUN (Urea Nitrogen) 26 mg/dL (9.8-20.1); Bilirubin, Total 0.8 mg/dL (0.2-1.2); Calc. Creatinine Clearance 74 mL/min (70-130); Calcium 8.8 mg/dL (7.8-10.44); Carbon Dioxide 25 mmol/L (23-31); Chloride 104 mmol/L (98-107); Estimated GFR-MDRD 36; Glucose 177 mg/dL (80-115); Magnesium 2.1 mg/dL (1.6-2.6); Potassium 4.3 mmol/L (3.5-5.1); Protein, Total 5.8 g/dL (6.0-8.3); Sodium 136 mmol/L (136-145)
[2019-03-30] MEDS: Piperacillin/Tazobactam 4.5 GM in Sodium Chloride 0.9% 100 ML IVPB SCH ×2 (02:58→08:44)
[2019-03-30] MEDS: Sodium Chloride 0.9% 1,000 ML IV SCH (02:59)
[2019-03-30] MEDS: Famotidine/PF 20 mg/2ml Vial SLOW IVP SCH (08:36)
[2019-03-30] MEDS: Famotidine 20 MG TAB PO SCH (08:44)
[2019-03-30] MEDS ORDERED: Losartan 25 MG TAB PO SCH (09:00)
[2019-03-30] MEDS ORDERED: Hydrochlorothiazide 25 MG TAB PO SCH (09:00)
[2019-03-30] MEDS: HYDROcodone/Acetaminophen 10/325 mg Tablet PO PRN (10:35)
--- NOTE | 2019-03-30 11:26 | PDOC.GSPN ---
Surgery Progress Note: Subj - Subjective Patient reports: no new complaints Surgery Progress Note: Obj - Vital signs Vital signs: Vital Signs - Most Recent Temp Pulse Resp BP Pulse Ox 97.5 F L 51 L 14 117/71 95 03/30/19 08:00 03/30/19 08:00 03/30/19 08:00 03/30/19 08:00 03/30/19 08:00 - Physical Exam General: no distress Respiratory: clear to auscultation Abdomen: soft, appropriately tender Wound: healing well Surgery Progress Note: Results - Labs Result Diagrams: 03/30/19 01:57 03/30/19 01:57 Lab results: Laboratory Results - last 24 hr 03/28/19 03/30/19 03/30/19 15:13 01:57 01:57 WBC RBC Hgb Hct MCV MCH MCHC RDW Plt Count MPV Neutrophils % Lymphocytes % Monocytes % Eosinophils % Basophils % Neutrophils # Lymphocytes # Monocytes # Eosinophils # Basophils # Smear Path Review Sodium 136 Potassium 4.3 Chloride 104 Carbon Dioxide 25 Anion Gap 11 BUN 26 H Creatinine 1.44 H Estimated GFR (MDRD) 36 Glucose 177 H Lactic Acid Calcium 8.8 Magnesium 2.1 Total Bilirubin 0.8 AST 34 ALT 38 Alkaline Phosphatase 84 Serum Total Protein 5.8 L Albumin 2.8 L Globulin 3.0 Albumin/Globulin Ratio 0.9 L Cortisol 7.30 03/30/19 03/30/19 01:57 01:57 WBC 15.9 H RBC 3.57 L Hgb 10.5 L Hct 32.5 L MCV 91.1 MCH 29.3 MCHC 32.2 RDW 12.5 Plt Count 147 MPV 8.5 Neutrophils % 91.1 H Lymphocytes % 3.9 L Monocytes % 4.9 Eosinophils % 0.1 Basophils % 0.0 Neutrophils # 14.5 H Lymphocytes # 0.6 L Monocytes # 0.8 H Eosinophils # 0.0 Basophils # 0.0 Smear Path Review Sodium Potassium Chloride Carbon Dioxide Anion Gap BUN Creatinine Estimated GFR (MDRD) Glucose Lactic Acid 1.4 Calcium Magnesium Total Bilirubin AST ALT Alkaline Phosphatase Serum Total Protein Albumin Globulin Albumin/Globulin Ratio Cortisol Surgery Progress Note: A/P - Problem (1) Acute cholecystitis Current Visit: Yes Code(s): K81.0 - ACUTE CHOLECYSTITIS Status: Acute - Plan Plan: DC later today -I will remove drain in office Saturday
[2019-03-30 11:39] VITALS: BP 118/59; TEMP 97.1
--- NOTE | 2019-03-31 00:24 | DIS ---
DATE OF ADMISSION: 03/27/2019 DATE OF DISCHARGE: 03/30/2019 PRIMARY CARE PROVIDER: Dr. Tejas Arnold. DISCHARGE DIAGNOSES: 1. Acute cholecystitis. 2. Sepsis. 3. Hypertensive urgency. CONSULTATIONS DURING THIS HOSPITALIZATION: Cardiology, Dr. Acosta and General Surgery, Dr. Sahni. DISCHARGE MEDICATIONS: In addition to her pre-admission home medications as dictated on my history and physical note dated 03/27/2019, discharged home on ciprofloxacin 500 mg 2 times a day for 1 week and metronidazole 500 mg 3 times a day for 1 week. CONDITION OF PATIENT ON THE DAY OF DISCHARGE: Stable. I assessed Ms. Coyle on the day of discharge. She denies any chest pain. Abdominal pain is better. Vital signs are stable. S1 and S2 are heard, regular. Lungs are clear to auscultation bilaterally. HOSPITAL COURSE: Ms. Coyle is a pleasant 68-year-old lady, who was admitted to [facility] on 03/27/2019, for chest pain and hypertensive urgency. She was seen by Cardiology Service. 2D echocardiogram showed left ventricular ejection fraction of 60% to 65%, normal diastolic function, trace mitral regurgitation, and mild tricuspid regurgitation. It was felt that her chest pain was noncardiac. On 03/28, she was found to have bandemia. Further investigations revealed elevated total bilirubin of 1.9. Abdominal ultrasound showed cholecystitis and cholelithiasis. General Surgery Service was consulted. She underwent laparoscopic cholecystectomy on 03/29/2019. She improved clinically. She is being discharged home in a stable condition. She has been advised to stop losartan and hydrochlorothiazide because her creatinine was elevated at 1.44 on the day of discharge. She is advised to follow up with her primary care provider to have her creatinine and electrolytes rechecked. She is being discharged on hydralazine 25 mg 3 times a day. On the day of discharge, she has normal electrolytes, elevated blood urea nitrogen of 26, elevated creatinine of 1.44, decreased albumin of 2.8, normal total bilirubin, normal AST, normal ALT, and normal alkaline phosphatase. White count is 15,900, hemoglobin 10.5, and Platelet count 147,000. Many thanks for allowing me to participate in your patient's care. Please feel free to contact me with any questions or concerns. DISCHARGE DESTINATION: Home. TOTAL AMOUNT OF TIME SPENT COORDINATING THIS DISCHARGE: 32 minutes. Job ID: [id number]
== END 2019-03-30 15:34 | disposition home or self-care (01) | DRG 854 ==
LOC: ERS 06:10 → 2NO 10:16 → SURG A 03-29 14:09
PROVIDERS: ADMIT Internal Medicine; ATTEND Internal Medicine
PROC: 0FT44ZZ Resection of Gallbladder, Percutaneous Endoscopic Approach (ICD-10-PCS; principal; 2019-03-29)
PROC: BF10YZZ Fluoroscopy of Bile Ducts using Other Contrast (ICD-10-PCS; 2019-03-29)
DX: A41.9 Sepsis, unspecified organism (principal); K80.00 Calculus of gallbladder with acute cholecystitis without obstruction; Z68.42 Body mass index [BMI] 45.0-49.9, adult; K82.A1 Gangrene of gallbladder in cholecystitis; I10 Essential (primary) hypertension; E78.5 Hyperlipidemia, unspecified; R00.1 Bradycardia, unspecified; I16.0 Hypertensive urgency; R07.89 Other chest pain; E66.01 Morbid (severe) obesity due to excess calories; Z98.51 Tubal ligation status; Z79.899 Other long term (current) drug therapy
CPT/HCPCS: 36415; 47532; 71045; 71046; 76700; 80048; 80053; 80076; 81001; 82533; 82550; 83605; 83690; 83735; 84443; 84484; 85025; 85060; 87040; 88304; 93005; 93306; 96361; 96374; 96375; J0131; J0360; J0461; J1100; J1885; J2001; J2270; J2405; J2543; J2704; J3010; J3370; J3490; J7050; J7620; Q9961; S0028

== ENCOUNTER 2021-07-19 08:43 | Outpatient (CLI) | payer MEDICARE | END 2021-07-19 08:44 | disposition home or self-care (01) | LOC: BICMAMMO 08:43 | PROVIDERS: ATTEND Obstetrics & Gynecology | DX: Z12.31 Encounter for screening mammogram for malignant neoplasm of breast (principal); Z80.3 Family history of malignant neoplasm of breast | CPT/HCPCS: 77063; 77067 ==

== ENCOUNTER 2022-07-24 07:55 | Outpatient (CLI) | payer MEDICARE | END 2022-07-24 07:56 | disposition home or self-care (01) | LOC: BICMAMMO 07:55 | PROVIDERS: ATTEND Family Medicine | DX: Z12.31 Encounter for screening mammogram for malignant neoplasm of breast (principal); Z80.3 Family history of malignant neoplasm of breast | CPT/HCPCS: 77063; 77067 ==

== ENCOUNTER 2023-01-18 09:02 | Outpatient (CLI) | payer MEDICARE ==
[2023-01-18 10:21] LABS: #Eosinphils 0.1 10x3/uL (0.0-0.5); #Monocytes 0.6 10x3/uL (0.0-1.1); #Neutrophils 3.6 10x3/uL (1.5-8.4); %Basophils 0.5 % (0.0-2.0); %Eosinophils 1.6 % (0.0-6.0); %Lymphocytes 29.9 % (18.0-47.0); %Monocytes 9.8 % (0.0-10.0); Hemoglobin 13.9 g/dL (12.0-15.5); Mean Corpuscular Hemoglobin 29.4 pg (27.0-33.0); Mean Corpuscular Volume 89.2 fl (81.6-98.3); Mean Platelet Volume 10.1 fl (7.4-10.4); Platelet Count 222 10x3/uL (150-450); Red Blood Cell (RBC) Count 4.72 10x6/uL (3.90-5.03); White Blood Cell (WBC) Count 6.2 10x3/uL (3.5-10.5)
[2023-01-18 10:28] LABS: INR-International Normal Ratio 0.9; Prothrombin Time 9.8 sec (9.5-12.1)
[2023-01-18 10:34] LABS: Anion Gap 13 mmol/L (10-20); BUN (Urea Nitrogen) 12 mg/dL (9.8-20.1); Calc. Creatinine Clearance 0 mL/min (70-130); Calcium 9.4 mg/dL (7.8-10.44); Carbon Dioxide 24 mmol/L (23-31); Chloride 107 mmol/L (98-107); Estimated GFR 75; Glucose 95 mg/dL (83-110); Potassium 4.1 mmol/L (3.5-5.1); Sodium 140 mmol/L (136-145)
== END 2023-01-18 09:03 | disposition home or self-care (01) ==
LOC: LABBT 09:02
PROVIDERS: ATTEND Orthopaedic Surgery
DX: Z01.812 Encounter for preprocedural laboratory examination (principal); M17.12 Unilateral primary osteoarthritis, left knee
CPT/HCPCS: 80048; 85025; 85610; 87081

== ENCOUNTER 2023-01-23 06:40 | Observation (INO) | payer MEDICARE ==
[2023-01-21 15:28] VITALS: BMI 39.4
[2023-01-23] MEDS ORDERED: Vancomycin (BATCH) 1.5 GRAM/300 ML BAG ONE (08:00)
[2023-01-23] MEDS ORDERED: Sodium Chloride 0.9% 100 ML ONE ×2 (08:00→08:48)
[2023-01-23] MEDS ORDERED: Tranexamic Acid 1,000 MG/10 ML VIAL ONE ×2 (08:00→11:38)
[2023-01-23] MEDS ORDERED: Bupivacaine/Epinephrine 0.25% 30 ML VIAL ONE (08:26)
[2023-01-23 08:38] LABS: SARS-CoV-2 NAA Rapid Test Not Detected (NotDetected)
[2023-01-23] MEDS ORDERED: FENTANYL 50 MCG/ML 1 ML VIAL ONE ×3 (08:38→11:35)
[2023-01-23] MEDS ORDERED: Midazolam HCl 2 mg/2 ml Vial ONE (08:38)
[2023-01-23] MEDS ORDERED: Bupivacaine PF 0.5% 30 ML VIAL ONE (08:39)
[2023-01-23] MEDS ORDERED: CEFAZOLIN 2 GM VIAL ONE (08:48)
[2023-01-23] MEDS ORDERED: fentaNYL PF 100 MCG/2 ML SYRINGE ONE ×2 (09:09→09:56)
[2023-01-23] MEDS ORDERED: Dexamethasone 20 MG/5 ML VIAL ONE (09:16)
[2023-01-23] MEDS ORDERED: PROPOFOL 200 MG/20 ML VIAL ONE (09:16)
[2023-01-23] MEDS ORDERED: Lidocaine 1% PF 5 ML VIAL ONE (09:16)
[2023-01-23] MEDS ORDERED: PHENYLEPHRINE-NS 100 MCG/ML 10 ML SYRINGE ONE (09:16)
[2023-01-23] MEDS ORDERED: Ketorolac Tromethamine 30 MG/ML VIAL ONE (09:16)
[2023-01-23] MEDS ORDERED: Ondansetron PF 4 MG/2 ML Vial ONE (09:16)
[2023-01-23] MEDS ORDERED: Ondansetron PF 4 MG/2 ML Vial IVP PRN ×2 (09:30→11:06)
[2023-01-23] MEDS ORDERED: FENTANYL 50 MCG/ML 1 ML VIAL SLOW IVP PRN (09:30)
[2023-01-23] MEDS ORDERED: traMADol HCl 50 MG TAB PO PRN ×2 (09:30)
[2023-01-23] MEDS ORDERED: Ropivacaine 0.2% 550 ML 550 ML NERVE BLCK SCH (09:30)
[2023-01-23] MEDS ORDERED: HYDROcodone/Acetaminophen 10/325 mg Tablet PO PRN (09:30)
[2023-01-23] MEDS ORDERED: Zolpidem Tartrate 5 MG TAB PO PRN ×2 (09:30→11:06)
[2023-01-23] MEDS ORDERED: Promethazine HCl 25 MG/ML VIAL IM PRN ×3 (09:30→11:24)
[2023-01-23] MEDS ORDERED: hydrALAZINE 20 MG/ML VIAL ONE (10:12)
[2023-01-23] MEDS ORDERED: diphenhydrAMINE 25 MG CAP PO PRN (11:06)
[2023-01-23] MEDS ORDERED: Acetaminophen 325 MG TAB PO PRN (11:06)
[2023-01-23] MEDS ORDERED: Ondansetron HCl/PF 4 MG/2 ML Vial IVP PRN (11:24)
[2023-01-23] MEDS ORDERED: PACU-Morphine 4MG/ML VIAL SLOW IVP PRN (11:24)
[2023-01-23] MEDS ORDERED: Aspirin 81 mg Enteric Coated Tablet PO SCH (11:45)
[2023-01-23] MEDS ORDERED: Ferrous Gluconate 324 MG TAB PO SCH (11:45)
[2023-01-23] MEDS ORDERED: HYDROmorphone 0.5 MG/0.5 ML SYRINGE ONE (11:50)
[2023-01-23] MEDS ORDERED: Senokot S 8.6-50 MG TAB PO SCH (12:00)
[2023-01-23] MEDS ORDERED: Multivitamin W/ Minerals 1 TAB PO SCH (12:00)
[2023-01-23] MEDS: Dextrose 5 %-0.45 % NaCl 1,000 ML IV SCH ×2 (12:51→21:10)
[2023-01-23] MEDS: Ketorolac Tromethamine 30 MG/ML VIAL IVP SCH ×2 (12:52→17:42)
[2023-01-23] MEDS: HYDROcodone/Acetaminophen 10/325 mg Tablet PO PRN ×2 (14:01→21:23)
[2023-01-23] MEDS: CEFAZOLIN 2 GM in Sodium Chloride 0.9% 100 ML IVPB SCH (15:15)
[2023-01-23] MEDS: Ferrous Gluconate 324 MG TAB PO SCH (17:41)
[2023-01-23] MEDS: Senokot S 8.6-50 MG TAB PO SCH (20:02)
[2023-01-23] MEDS: Aspirin 81 mg Enteric Coated Tablet PO SCH (20:03)
[2023-01-24] MEDS: Ketorolac Tromethamine 30 MG/ML VIAL IVP SCH ×2 (00:23→05:39)
[2023-01-24] MEDS: CEFAZOLIN 2 GM in Sodium Chloride 0.9% 100 ML IVPB SCH (00:26)
[2023-01-24 06:20] LABS: Hemoglobin 11.4 g/dL (12.0-16.0); Mean Corpuscular HGB CONC 34.6 g/dL (32.0-36.0); Mean Corpuscular Hemoglobin 31.7 pg (27.0-31.0); Mean Corpuscular Volume 91.8 fl (78.0-98.0); Mean Platelet Volume 8.3 fL (7.4-10.4); Platelet Count 166 10x3/uL (130-400); Red Blood Cell (RBC) Count 3.59 mill/uL (4.20-5.40); White Blood Cell (WBC) Count 14.4 10x3/uL (4.8-10.8)
[2023-01-24 08:18] VITALS: BP 130/60; TEMP 98
[2023-01-24] MEDS: Dextrose 5 %-0.45 % NaCl 1,000 ML IV SCH (08:28)
[2023-01-24] MEDS ORDERED: Multivitamin W/ Minerals 1 TAB PO SCH (09:00)
[2023-01-24] MEDS: Senokot S 8.6-50 MG TAB PO SCH (10:34)
[2023-01-24] MEDS: Aspirin 81 mg Enteric Coated Tablet PO SCH (10:35)
[2023-01-24] MEDS: Ferrous Gluconate 324 MG TAB PO SCH (10:37)
== END 2023-01-24 11:29 | disposition home or self-care (01) ==
LOC: SDC 06:40 → SJJU 12:46
PROVIDERS: ADMIT Orthopaedic Surgery; ATTEND Orthopaedic Surgery
PROC: 0SRD0J9 Replacement of Left Knee Joint with Synthetic Substitute, Cemented, Open Approach (ICD-10-PCS; principal; 2023-01-23)
DX: M17.12 Unilateral primary osteoarthritis, left knee (principal); I10 Essential (primary) hypertension; E78.5 Hyperlipidemia, unspecified; G47.33 Obstructive sleep apnea (adult) (pediatric); Z79.899 Other long term (current) drug therapy; Z20.822 Contact with and (suspected) exposure to COVID-19
CPT/HCPCS: 27447; 73560; 85027; 97110 ×2; 97116 ×2; 97530; A4306; C1713; C1776; J0360; J3010; J3370; U0002; 36415; 96365; 96375; 96376; G0378; J1100; J1170; J1885; J2250; J2405; J2704; J2795; J3490; J7042; S0020

== ENCOUNTER 2024-08-13 11:02 | Outpatient (CLI) | payer MEDICARE | END 2024-08-13 11:03 | disposition home or self-care (01) | LOC: BICMAMMO 11:02 | PROVIDERS: ATTEND Family Medicine | DX: Z12.31 Encounter for screening mammogram for malignant neoplasm of breast (principal); Z80.3 Family history of malignant neoplasm of breast | CPT/HCPCS: 77063; 77067 ==

== ENCOUNTER 2025-08-26 09:54 | Outpatient (CLI) | payer OTHER | END 2025-08-26 09:55 | disposition home or self-care (01) | LOC: BICMAMMO 09:54 | PROVIDERS: ATTEND Family Medicine | DX: Z12.31 Encounter for screening mammogram for malignant neoplasm of breast (principal); Z80.3 Family history of malignant neoplasm of breast; Z85.828 Personal history of other malignant neoplasm of skin | CPT/HCPCS: 77063; 77067 ==